=== PATIENT | female | born 1950 | race Caucasian/White ===

== ENCOUNTER 2020-05-15 16:41 | Outpatient (CLI) | payer MEDICARE, SELFPAY ==
--- NOTE | ~2020-05-15 | MM_ITS ---
EXAMINATION: MM screening dinesh BI w julio cesar HISTORY: Screening TECHNIQUE: Craniocaudal and mediolateral oblique 3-D tomosynthesis images were obtained and synthetic 2-D images were generated. CAD analysis was submitted and interpreted. COMPARISON: No prior mammogram is available for comparison at this institution. BREAST PARENCHYMAL COMPOSITION: There are scattered areas of fibroglandular density. FINDINGS: There is a mass in the upper outer quadrant of the left breast measuring 1.7 cm which is ra diolucent and contains punctate calcifications. No mammographic evidence for malignancy in the right breast. IMPRESSION: 1. Lobulated 1.7 cm left breast mass. 2. Additional mammographic views and possible breast ultrasound are recommended. BI-RADS Category 0: Incomplete: Needs additional imaging evaluation. Reviewed, dictated and finalized at location A. ER MINER IMPRESSION: 1. Lobulated 1.7 cm left breast mass. 2. Additional mammographic views and possible breast ultrasound are recommended . BI-RADS Category 0: Incomplete: Needs additional imaging evaluation.
== END 2020-05-15 16:42 | disposition home or self-care (01) ==
LOC: ANHIMG 16:44
PROVIDERS: PCP Family Medicine; Visit Provider Family Medicine
DX: Z12.31 Encounter for screening mammogram for malignant neoplasm of breast (principal); R92.8 Other abnormal and inconclusive findings on diagnostic imaging of breast
CPT/HCPCS: 77063; 77067

== ENCOUNTER 2020-06-11 13:16 | Outpatient (CLI) | payer MEDICARE, SELFPAY ==
--- NOTE | ~2020-06-11 | MMUS_ITS ---
EXAMINATION: MM diagnostic mammo unilat LT, US breast LT limited HISTORY: 1.7 cm upper outer quadrant left breast mass TECHNIQUE: Additional 3-D tomosynthesis images of the left breast were performed and synthetic 2-D im ages were generated. CAD analysis was submitted and interpreted. High resolution upper outer quadrant left breast ultrasound was performed. COMPARISON: 05/15/19992010 bilateral digital screening mammogram FINDINGS: MAMMOGRAPHIC FINDINGS: There is an approximately 1.7 cm circumscribed low-density opacity in the upper outer quadrant of the left breast anteriorly. There are some calcifications within the lesion and fatty density, suggestin g benign hamartoma. No other suspicious mass or any architectural distortion, malignant calcification, skin thickening or retraction is evident. ULTRASOUND: There is a mixed solid and fatty circumscribed parallel hypoechoic 1.6 x 0.6 x 1.6 cm mass with some edge shadowing. The presence of extensive fatty density within the lesion and the presence of calcifi cations on the mammogram most consistent with hamartoma. The circumscribed margins are consistent wit h benign process. IMPRESSION: 1. Benign hamartoma, upper outer left breast 2. Routine annual mammographic screening is recommended. BI-RADS Category 2: Benign finding(s). Reviewed, dictated and finalized at location A. D ASSESSOR IMPRESSION: 1. Benign hamartoma, upper outer left breast 2. Routine annual mammographic screening is recommended. BI-RADS Category 2: Benign finding(s).
== END 2020-06-11 13:17 | disposition home or self-care (01) ==
PROVIDERS: PCP Family Medicine; Visit Provider Family Medicine
DX: R92.8 Other abnormal and inconclusive findings on diagnostic imaging of breast (principal)
CPT/HCPCS: 76642; 77065

== ENCOUNTER 2021-03-17 13:53 | Emergency (ER) | payer MEDICARE, SELFPAY ==
--- NOTE | ~2021-03-17 | XR_ITS ---
EXAMINATION: XR chest 2V DATE: 03/17/2021 14:20 INDICATION: Back pain TECHNIQUE: PA and lateral views of the chest are obtained. COMPARISON: 06/06/2013 FINDINGS: The lungs are free of acute opacities. There is no pleural effusion or pneumothorax. The ca rdiomediastinal silhouette is normal. There is mild thoracic spondylosis. IMPRESSION: 1. No acute cardiopulmonary abnormality. Reviewed, dictated and finalized at location A. DEMONSTRATOR
[2021-03-17 14:04] VITALS: BP 161/81; PULSE 101; RESP 16; TEMP 36.9; O2SAT 98
--- NOTE | 2021-03-17 14:27 | ED.BACK ---
HPI - Back Pain/Injury General Chief Complaint: Back Pain/Injury Stated Complaint: back pain Source: patient and RN notes reviewed Limitations: no limitations History of Present Illness HPI Narrative: The vaccinated patient, a smoker/ rare drinker, presents with back pain. Patient states she has at least a weeklong history of bilateral, point tender mid back pain that is slightly worse with twisting or movement, better at rest, that she attributed to onset with increased lifting/heavy housework. Symptoms are mild, unrelieved with Motrin; no fever, frequency/dysuria, radiating pain, numbness/weakness; no loss of taste/smell, shortness of breath. No trauma, abdominal pain ; in 2018 abdominal ultrasound was noncontributory without AAA; years ago [2013], lumbar film showed lumbar spondylolysis. Vital signs remarkable for blood pressure in 160s systolic, patient requests refill of prior beta-chris she is out of. Related Data Allergies Allergy/AdvReac Type Severity Reaction Status Date / Time No Known Allergies Allergy Verified 05/07/20 15:30 Review of Systems Review of Systems: General/Constitutional: No weight loss,fever Eyes: N0: Redness,discharge Ears/Nose/Throat: No: Epistaxis,ear discharge Respiratory: Denies: Hemoptysis Gastrointestinal: No Vomiting, Bleeding-rectal Skin: No Lumps, eruption Neurologic: No Focal Weakness,Sz Hematologic: Denies: Petechiae/Purpura Psychiatric: No: Suicida ideationl All Other Systems: Reviewed and Negative [facility] Past Medical History Medical History (Updated 03/17/21 @ 15:22 by Anderson Watkins MD) Arthritis Depression Dyslipidemia Fibromyalgia Hypertension Insomnia Intractable migraine without status migrainosus Unspecified osteoarthritis, unspecified site Surgical History Surgical History H/O total hysterectomy with bilateral salpingo-oophorectomy (BSO) Family History Family History Other Depression Social History Social History Smoking packs per day: 0.5 Smoking cigarettes per day: 10.0 Years smoked: 49 Smoking pack-years: 24.50 Smoking status: Current every day smoker Tobacco type: cigarettes Second hand tobacco smoke exposure: No Additional smoking assessment comments: consumes 1/2 pack of cigarettes daily Alcohol intake: never Substance use: never Substance use type: does not use Gender identity (if verbalized by the patient): Female Comments At time of signature, agree with nursing past medical, surgical, social and family history. There is no relevant family history pertinent to the presenting complaint Exam Narrative: General Appearance: Well appearing, Well nourished EYE: PERRLA, Conjunctiva clear Ears: External ear normal Nose: Normal nose Mouth/Throat: Normal appearing, Normal lips Neck: Supple Respiratory: Airway patent Abdomen: Soft Musculoskeletal: Normal strength (no footdrop, 5/5 : EH L-FHL, gastroc-AT, no saddle weakness) Spine/Back: Upper lumbar paraspinal muscle tender (with mild decreased range of motion) Skin: Normal color Neurological: A&O x3, CN II-XII intact, Normal reflexes (symmetric, 2+ KJ, trace AJ) Psychiatric: Normal mood Course Vital Signs Vital signs: Vital Signs Temperature 98.4 F 03/17/21 14:04 Pulse Rate 101 H 03/17/21 14:04 Respiratory Rate 16 03/17/21 14:04 Blood Pressure 161/81 H 03/17/21 14:04 Pulse Oximetry 98 03/17/21 14:04 Temperature 98.4 F 03/17/21 14:04 Pulse Rate 101 H 03/17/21 14:04 Respiratory Rate 16 03/17/21 14:04 Blood Pressure 161/81 H 03/17/21 14:04 Pulse Oximetry 98 03/17/21 14:04 Discharge Plan Discharge Clinical Impression: Lumbar spondylolysis Back pain Qualifiers: Back pain location: back pain in unspecified location Chronicity: acute Back pain laterality: b
[2021-03-18 18:23] LABS: SARS-CoV-2 RNA PCR Negative
== END 2021-03-17 14:43 | disposition home or self-care (01) ==
PROVIDERS: Emergency Provider Emergency Medicine; PCP Family Medicine
DX: M54.50 Low back pain, unspecified (principal); Z20.822 Contact with and (suspected) exposure to COVID-19; M19.90 Unspecified osteoarthritis, unspecified site; E78.5 Hyperlipidemia, unspecified; M79.7 Fibromyalgia; I10 Essential (primary) hypertension
CPT/HCPCS: 71046; 99213; C9803; G0463; U0003; U0005

== ENCOUNTER 2023-05-28 14:36 | Emergency (ER) | payer MEDICARE, SELFPAY ==
--- NOTE | ~2023-05-28 | CT_ITS ---
EXAMINATION: CT lumbar spine wo con DATE: 05/28/2023 16:01 INDICATION: Low back pain. Fall. TECHNIQUE: Computed tomography (CT) of the lumbar spine was performed without intravenous contrast. A utomated exposure control and iterative reconstruction technique were employed. The dose-length produ ct was 1272.89 mGy-cm. COMPARISON: None FINDINGS: Bone alignment is normal. Vertebral body heights are normal. There is mildly decreased disc height at L2-L3 and L3-L4 and severely decreased disc height at L4-L5 and L5-S1. The following disc levels are specifically discussed: L1-L2: The disc does not extend beyond the endplate margin. There is mild bilateral facet joint osteo arthritis. There is no neural foraminal stenosis. There is no central canal stenosis. L2-L3: The disc is bulging. There is moderate bilateral facet joint osteoarthritis. There is mild kurt ateral neural foraminal stenosis. There is mild central canal stenosis. L3-L4: The disc is bulging. There is severe bilateral facet joint osteoarthritis. There is moderate b ilateral neural foraminal stenosis. There is mild central canal stenosis. L4-L5: The disc is bulging. There is severe bilateral facet joint osteoarthritis. There is moderate b ilateral neural foraminal stenosis. There is mild central canal stenosis. L5-S1: The disc is bulging. There is severe bilateral facet joint osteoarthritis. There is moderate b ilateral neural foraminal stenosis. There is mild central canal stenosis. IMPRESSION: 1. No fracture. 2. Severe lumbar spondylosis. Reviewed, dictated and finalized at location E. MER AND REINFORCER
--- NOTE | ~2023-05-28 | CT_ITS ---
EXAMINATION: CT brain wo con DATE: 05/28/2023 15:58 INDICATION: Head injury. TECHNIQUE: Computed tomography (CT) of the head was performed without intravenous contrast. The mA wa s adjusted according to patient size. Iterative reconstruction technique was employed. The dose-lengt h product was 681.00 mGy-cm. COMPARISON: Head CT 10/13/2006 FINDINGS: There is a hemorrhagic contusion in anteroinferior right middle lobe with adjacent small vo lume of acute subarachnoid hemorrhage. There is no acute ischemic infarct or abnormal mass lesion. Th e mastoid air cells are normal. The paranasal sinuses are clear. There are likely changes of ocular l ens replacement surgeries. IMPRESSION: 1. Acute hemorrhagic contusion involving anteroinferior right frontal lobe with adjacent small volume of acute subarachnoid hemorrhage. I called this result to Emmie Soto. Reviewed, dictated and finalized at location E. ON PICTURES CARTOONIST IMPRESSION: 1. Acute hemorrhagic contusion involving anteroinferior right frontal lobe with adjacent small volume of acute subarachnoid hemorrhage. I called this result frank Soto.
--- NOTE | ~2023-05-28 | CT_ITS ---
EXAMINATION: CT cervical spine wo con DATE: 05/28/2023 16:01 INDICATION: Head injury. TECHNIQUE: Computed tomography (CT) of the cervical spine was performed without intravenous contrast. Automated exposure control and iterative reconstruction technique were employed. The dose-length pro duct was 449.44 mGy-cm. COMPARISON: CT cervical spine 10/13/2006 FINDINGS: There is 9 degrees levocurvature of cervical spine. There is kyphosis of cervical spine. Ve rtebral body heights are normal. There is severely decreased disc height from C4-C5 through C6-C7. Th e following disc levels are specifically discussed: C2-C3: There is mild right and severe left uncovertebral joint osteoarthritis. There is severe bilate ral facet joint osteoarthritis. There is mild right and moderate left neural foraminal stenosis. Ther e is no central canal stenosis. C3-C4: There is severe right and mild left uncovertebral joint osteoarthritis. There is severe bilate ral facet joint osteoarthritis. There is moderate right and mild left neural foraminal stenosis. Ther e is mild central canal stenosis. C4-C5: There is severe bilateral uncovertebral joint osteoarthritis. There is severe right and mild l eft facet joint osteoarthritis. There is moderate right and mild left neural foraminal stenosis. Ther e is mild central canal stenosis. C5-C6: There is severe bilateral uncovertebral joint osteoarthritis. There is severe bilateral facet joint osteoarthritis. There is mild bilateral neural foraminal stenosis. There is mild central canal stenosis. C6-C7: There is severe bilateral uncovertebral joint osteoarthritis. There is severe bilateral facet joint osteoarthritis. There is mild bilateral neural foraminal stenosis. There is mild central canal stenosis. C7-T1: There is no uncovertebral joint osteoarthritis. There is severe bilateral facet joint osteoart hritis. There is mild bilateral neural foraminal stenosis. There is no central canal stenosis. IMPRESSION: 1. No fracture. 2. Severe cervical spondylosis. Reviewed, dictated and finalized at location E. APPLICATIONS DEVELOPER
[2023-05-28 14:37] VITALS: BP 158/88; PULSE 86; RESP 18; TEMP 36.4; O2SAT 99
--- NOTE | 2023-05-28 15:59 | ED.FALL ---
HPI - Fall General Chief Complaint: Fall <Emmie Soto PA-C - Last Filed: 05/28/23 17:05> Stated Complaint: fall <ARUNA Bhat Last Filed: 05/28/23 17:05> Time Seen by Provider: 05/28/23 14:54 <Emmie Soto PA-C - Last Filed: 05/28/23 17:05> Source: patient <Emmie Soto PA-C - Last Filed: 05/28/23 17:05> Mode of arrival: ambulatory <ARUNA Bhat Last Filed: 05/28/23 17:05> Limitations: no limitations <ARUNA Bhat Last Filed: 05/28/23 17:05> History of Present Illness HPI Narrative: This is a 72 year old female that presents to the ER for a fall 3 days ago with head injury. Reports she slipped and fell backwards and hit her head. Reports she believes she lost consciousness. Since she has been having headaches and nausea. Also reports low back pain. Denies vision changes, vomiting, numbness or weakness. <Emmie Soto PA-C - Last Filed: 05/28/23 17:05> Related Data Home Medications: Home Medications Medication Instructions Recorded Confirmed ascorbic acid (vitamin C) 1,000 mg 1 g PO DAILY 07/24/21 09/01/22 tablet cholecalciferol (vitamin D3) 25 25 mcg PO DAILY 07/24/21 09/01/22 mcg (1,000 unit) capsule naproxen sodium 220 mg tablet 220 mg PO BID PRN 10/02/21 09/01/22 <Emmie Soto PA-C - Last Filed: 05/28/23 17:05> Allergies/Adverse Reactions: Allergies Allergy/AdvReac Type Severity Reaction Status Date / Time No Known Allergies Allergy Verified 05/28/23 14:41 <ARUNA Bhat Last Filed: 05/28/23 17:05> Review of Systems Review of Systems: CONSTITUTIONAL: Denies fever EYES: Denies visual changes GASTROINTESTINAL: Denies vomiting MUSCULOSKELETAL: Reports back pain, joint pain, and myalgia. NEUROLOGIC: Denies numbness, or weakness. <Emmie Soto PA-C - Last Filed: 05/28/23 17:05> All systems reviewed & are unremarkable except as noted in HPI and below <Emmie Soto PA-C - Last Filed: 05/28/23 17:05> PMFSH Past Medical History Medical History: Medical History Anxiety Arthritis Dyslipidemia Fibromyalgia Hypertension Insomnia Intractable migraine without status migrainosus Unspecified osteoarthritis, unspecified site <Emmie Soto PA-C - Last Filed: 05/28/23 17:05> Surgical History Surgical History: Surgical History S/P partial hysterectomy <Emmie Soto PA-C - Last Filed: 05/28/23 17:05> Family History Family History: Family History Other Depression Ovarian cancer <Emmie Soto PA-C - Last Filed: 05/28/23 17:05> Social History Social History: Social History Social History: Caffeine-coffee daily Smoking packs per day: 0.5 Smoking cigarettes per day: 10.0 Years smoked: 30 Smoking pack-years: 15.00 Smoking status: Light tobacco smoker Tobacco type: cigarettes Second hand tobacco smoke exposure: No Additional smoking assessment comments: consumes 1/2 pack of cigarettes daily Alcohol intake: never Substance use: never Substance use type: does not use Lack of Transportation: No Lack of Food: Never True Current Housing: I Have Housing Concerned About Future Housing: No Difficulty Paying Gas/Electric Bills: No Difficulty Paying for Meds: No Currently Unemployed: No Education: High School Diploma/GED Difficulty w/ Childcare or Family Care: No Gender identity (if verbalized by the patient): Female <ARUNA Bhat Last Filed: 05/28/23 17:05> Exam Narrative: GENERAL: Well-appearing, well-nourished, and in no acute distress. HEAD: Normocephalic, atraumatic. EYES: PERRLA and EOMI. ENT: Nares clear, no rhinorrhea or epistaxis. Mucous membranes moist. Oropharynx w
[2023-05-28 16:27] VITALS: BP 147/83; PULSE 97; RESP 16; O2SAT 98
[2023-05-28 16:42] VITALS: BP 138/72; PULSE 72; RESP 18; O2SAT 93
--- NOTE | 2023-05-28 16:50 | PC.NURSE ---
EMS here to transport pt.
== END 2023-05-28 17:05 | disposition short-term general hospital (02) ==
PROVIDERS: Emergency Provider Physician Assistant; PCP Family Medicine
DX: S06.6X9A Traumatic subarachnoid hemorrhage with loss of consciousness of unspecified duration, initial encounter (principal); I10 Essential (primary) hypertension; E78.5 Hyperlipidemia, unspecified; M79.7 Fibromyalgia; M19.90 Unspecified osteoarthritis, unspecified site; F17.210 Nicotine dependence, cigarettes, uncomplicated; Z90.711 Acquired absence of uterus with remaining cervical stump; M47.812 Spondylosis without myelopathy or radiculopathy, cervical region; M47.816 Spondylosis without myelopathy or radiculopathy, lumbar region; W01.0XXA Fall on same level from slipping, tripping and stumbling without subsequent striking against object, initial encounter
CPT/HCPCS: 70450; 72125; 72131; 99291

== ENCOUNTER 2023-06-18 16:36 | Outpatient (CLI) | payer MEDICARE, SELFPAY ==
--- NOTE | ~2023-06-18 | CT_ITS ---
EXAMINATION: CT brain wo con DATE: 06/18/2023 17:27 INDICATION: Nontraumatic subarachnoid hemorrhage. Posterior head pain. TECHNIQUE: Computed tomography (CT) of the head was performed without intravenous contrast. Sagittal and coronal reconstructions were performed. The mA was adjusted according to patient size. Iterative reconstruction technique was employed. The dose-length product was 681.00 mGy-cm. COMPARISON: head CT dated 05/28/2023 FINDINGS: The small intraparenchymal hemorrhage at the anterior inferior right frontal lobe has resolved. No ac felipe intracranial hemorrhage, acute infarction or abnormal extra axial fluid collection. There is mild scattered white matter hypoattenuation consistent with chronic small vessel ischemic disease. Ventr icles are normal and symmetric. No mass/mass effect. Changes of bilateral intraocular lens replacemen t. The orbits, paranasal sinuses and mastoid air cells are normal. IMPRESSION: 1. Resolution of prior small right frontal intraparenchymal hemorrhage. No acute intracranial process . 2. Mild scattered white matter hypoattenuation consistent with chronic small vessel ischemic disease. Reviewed, dictated and finalized at location A. RVISOR AIR CONDITIONING INSTALLER IMPRESSION: 1. Resolution of prior small right frontal intraparenchymal hemorrhage. No acut e intracranial process. 2. Mild scattered white matter hypoattenuation consistent with chronic small ve ssel ischemic disease.
== END 2023-06-18 16:37 | disposition home or self-care (01) ==
LOC: ANHIMG 16:36
PROVIDERS: PCP Family Medicine; Visit Provider Family Medicine
DX: I60.9 Nontraumatic subarachnoid hemorrhage, unspecified (principal); R90.82 White matter disease, unspecified
CPT/HCPCS: 70450

== ENCOUNTER 2024-08-26 12:55 | Outpatient (CLI) | payer MEDICARE, SELFPAY ==
--- NOTE | ~2024-08-26 | XR_ITS ---
3 VIEWS LUMBAR SPINE Ordering provider: Donita Anderson APRN History: . M54.50 - Low back pain, unspecified . Comparison: None. FINDINGS: VERTEBRAL BODIES:Fracture of the superior endplate of L2. No visible subluxation. Degenerative marsh es of the spine. DISK SPACES: Narrowing of the disc L4-L5 and L5-S1. Multilevel facet joint disease. SOFT TISSUES: Normal. IMPRESSION: Compression fracture of the superior endplate of L2. Multilevel degenerative disc disease. Reviewed, dictated and finalized at location A.
--- OUTSIDE RECORDS SUMMARY | 2024-08-26 13:00 | XMS_ITS | Continuity of Care Document ---
Author Organization [facility] Address [address] [place] [address] Phone Care Team Providers Care Employment Interviewer Name Role Phone Umaña OD, Otf Unavailable Unavailable Procedures Procedure Date Eye Exam & Treatment Refraction Advance Directives Directive Yes / No Effective Date File Name No Information Encounters Encounter Description Practice Location Reason(s) For Visit Diagnoses Date Provider Providers Copied on Encounter [facility], [address] [place], [place], [id number], [place] tel:[phone] [facility] [place] No Information 2-200 7 Umaña OD Otf. [address] [facility] [place] , [address], [place], [address], [place]. tel:[phone] Family History Family Member Type Diagnosis Age At Onset No Information Payers Payer name Insurance type Covered libertarian ID Lilly sepulveda(s) [facility] CI [id number] Social History Type Description Quantity Date Captured Comments Sex Female Smoking Status No Information Chief Complaint And Reason For Visit No Information Reason For Referral Reason For Referral No Information History Of Present Illness Encounter Date Complaint History Of Prese nt Illness No Information Functional Status Date Functional Assessmen t No Information Instructions Date Instruction Additional Infor mation No Information Assessments Type Assessment Date No Information Patient Care Teams Name Effective Dates (start - stop) Status Members No Information
== END 2024-08-26 12:56 | disposition home or self-care (01) ==
LOC: ANHIMG 12:58
PROVIDERS: PCP Family Medicine; Visit Provider Nurse Practitioner Adult Health
DX: S32.020A Wedge compression fracture of second lumbar vertebra, initial encounter for closed fracture (principal); M51.369 Other intervertebral disc degeneration, lumbar region without mention of lumbar back pain or lower extremity pain; M51.379 Other intervertebral disc degeneration, lumbosacral region without mention of lumbar back pain or lower extremity pain; X58.XXXA Exposure to other specified factors, initial encounter
CPT/HCPCS: 72100

== ENCOUNTER 2024-09-29 15:50 | Outpatient (CLI) | payer MEDICARE, SELFPAY ==
--- NOTE | ~2024-09-29 | MR_ITS ---
MRI of the lumbar spine Clinical History: Back pain Technique: Axial T2-weighted images, and sagittal T1-weighted, T2-weighted, and T2 fat-sat images wer e acquired. Findings: There is probable acute Schmorl's node versus acute compression fracture of the superior en dplate of L2. There are reactive Modic type I signal changes about the L4-L5 disc space due to underl vlad degenerative disc disease. At L1-L2, there is severe degenerative disc narrowing with minimal disc bulge and minimal facet arthr opathy. No central canal stenosis or neural foraminal narrowing. At L2-L3, there is mild degenerative disc narrowing. There is minimal disc bulge and mild facet arthr opathy. No central canal stenosis or neural foraminal narrowing. At L3-L4, there is diffuse disc bulge with advanced facet arthropathy. There is moderate to severe sp inal canal stenosis/thecal sac compression. There is moderate bilateral neural foraminal narrowing. At L4-L5, there is severe degenerative disc narrowing. There is diffuse disc bulge with advanced face t arthropathy. There is mild central canal stenosis. There is severe bilateral neural foraminal narro wing, right worse than left. At L5-S1, there is severe degenerative disc narrowing. There is diffuse disc bulge with annular fissu re. There is moderate to advanced facet arthropathy. No central canal stenosis. There is severe bilat eral neural foraminal compromise. Paravertebral soft tissues are unremarkable. Impression: Acute Schmorl's node versus compression fracture at the superior endplate region of L2. Advanced degenerative spondylosis, as above. There is multilevel severe bilateral neural foraminal na rrowing. Moderate to severe spinal canal stenosis at L3-L4. Reviewed, dictated and finalized at [facility]. Impression: Acute Schmorl's node versus compression fracture at the superior endplate regio n of L2. Advanced degenerative spondylosis, as above. There is multilevel severe bilater al neural foraminal narrowing. Moderate to severe spinal canal stenosis at L3-L 4.
== END 2024-09-29 15:51 | disposition home or self-care (01) ==
LOC: MICIMG 15:51
PROVIDERS: PCP Family Medicine; Visit Provider Nurse Practitioner Adult Health
DX: M51.46 Schmorl's nodes, lumbar region (principal); S32.020A Wedge compression fracture of second lumbar vertebra, initial encounter for closed fracture; X58.XXXA Exposure to other specified factors, initial encounter; M47.816 Spondylosis without myelopathy or radiculopathy, lumbar region; M47.817 Spondylosis without myelopathy or radiculopathy, lumbosacral region; M48.061 Spinal stenosis, lumbar region without neurogenic claudication
CPT/HCPCS: 72148

== ENCOUNTER 2024-10-28 10:30 | Emergency (ER) | payer MEDICARE, SELFPAY ==
--- NOTE | ~2024-10-28 | XR_ITS ---
EXAM/PROCEDURE: XR chest 2V - 10/28/2024 11:54 CDT HISTORY: 74 years old Female with dizziness, NAUSEOUS XYESTERDAY TECHNIQUE: Two view(s) of the chest. COMPARISON: None available. FINDINGS: LUNGS/ PLEURA: No focal consolidation. No appreciable pneumothorax or large pleural effusion. HEART/ MEDIASTINUM: Heart appears normal in size. BONES: Degenerative changes. OTHER: Visualized upper abdomen is unremarkable. IMPRESSION: No acute process. Reviewed, dictated and finalized at location A. IMPRESSION: No acute process.
--- NOTE | ~2024-10-28 | CT_ITS ---
EXAMINATION: CTA BRAIN/CAROTID DATE: 10/28/2024 12:26 INDICATION: Dizziness TECHNIQUE: Computed tomographic angiography (CTA) of the head and neck was performed with 100 mL Omni paque-350 intravenous contrast. Multiplanar reconstructions and maximum intensity projection 3D-recon structions of the carotid arteries and of the intracranial arteries were created by the technologist on a separate workstation. Precontrast CT of the head was also obtained. Automated exposure control and iterative reconstruction technique were employed.The dose-length product was 1642.91 mGy-cm. COMPARISON: None. FINDINGS: Carotid arteries: Small amount of atherosclerotic plaque without hemodynamically significant stenosis or dissection sean ng the normal caliber visualized portion of the aortic arch and the great vessels arising from the ar ch. Bilateral intracranial vertebral arteries are codominant with no evident plaque or stenosis. Ther e is atherosclerotic plaque with 70% stenosis of the right carotid bulb relative to normal distal art amado lumen diameter (NASCET criteria). There is atherosclerotic plaque with 60% stenosis of the left c arotid bulb relative to normal distal artery lumen diameter. Cervical soft tissues are unremarkable. Apices of lungs are clear. Moderate cervical spondylosis with mild kyphosis. Head: No acute intracranial hemorrhage, acute infarction or abnormal extra axial fluid collection. Ventricl es are normal and symmetric. No mass/mass effect. No abnormally enhancing brain lesions on the postco ntrast imaging. Changes of bilateral intraocular lens replacement. The orbits, paranasal sinuses and mastoid air cells are normal. Intracranial arteries Vertebral arteries are codominant. Small amount of hemodynamically significant atherosclerotic plaque at the bilateral carotid siphons. There is no hemodynamically significant stenosis in the vertebral, basilar and internal carotid arteries. Both A1 and the right P1 segments are patent. The right A1 se gment is diminutive with majority of flow to the right anterior cerebral artery supplied from the lef t A1 segment and a patent anterior communicating artery which significantly larger in caliber than th e diminutive right A1 segment. The left posterior cerebral artery supplied by the left internal carot id artery via a patent left posterior communicating artery. There is also a smaller caliber patent ri ght posterior commuting artery. There are no aneurysms identified. Cerebral arterial arborization ap pears symmetric. IMPRESSION: 1. 70% stenosis of the right carotid bulb relative to normal distal artery lumen diameter (NASCET cri teria). 2. 60% stenosis of the left carotid bulb relative to normal distal artery lumen diameter. 3. No acute intracranial process. 4. No hemodynamically significant stenosis, aneurysm or thrombosis in the intracranial arteries with normal anatomic variation to the anatomy of the [place] as detailed above. Reviewed, dictated and finalized at location A. IMPRESSION: 1. 70% stenosis of the right carotid bulb relative to normal distal artery lume n diameter (NASCET criteria). 2. 60% stenosis of the left carotid bulb relative to normal distal artery lumen diameter. 3. No acute intracranial process. 4. No hemodynamically significant stenosis, aneurysm or thrombosis in the intra cranial arteries with normal anatomic variation to the anatomy of the [place] as detailed above.
[2024-10-28 10:55] VITALS: BP 146/74; PULSE 79; RESP 16; TEMP 36.6; O2SAT 100
--- NOTE | 2024-10-28 11:05 | ECG_ITS ---
Test Date: 2024-10-28 11:15:14 Measurements Intervals [place] Rate: 73 P: 44 WV: 143 QRS: 21 QRSD: 89 T: 42 QT: 397 QTc: 438 Interpretive Statements SINUS RHYTHM WITH SINUS ARRHYTHMIA NORMAL ECG No previous ECG available for comparison Electronically Signed On 10-28-2024 11:28:53 CDT by Carlos Márquez D.O.
[2024-10-28 11:29] LABS: Basophils Absolute Auto 0.1 K/mm3 (0.0-0.1); Basophils Percent Auto 0.9 % (0.2-1.2); Eosinophils Absolute Auto 0.1 K/mm3 (0-0.3); Eosinophils Percent Auto 1.3 % (0-4.4); Hematocrit 43.3 % (37.0-47.0); Hemoglobin 14.2 g/dL (12.0-15.0); Immature Granulocyte Absolute 0.02 K/mm3 (0.00-0.031); Immature Granulocyte Percent A 0.3 % (0-0.5); Lymphocytes Percent Auto 24.4 % (18.3-44.2); Mean Corpuscular HGB Conc 32.8 g/dl (32-36); Mean Corpuscular Hemoglobin 31.6 pg (26-34); Mean Corpuscular Volume 96.2 fl (80-100); Mean Platelet Volume 10.4 fl (7.4-10.4); Monocytes Absolute Auto 0.7 K/mm3 (0.1-0.6); Monocytes Percent Auto 9.9 % (2.6-8.5); Neutrophils Absolute Auto 4.4 K/mm3 (1.3-6.7); Neutrophils Percent Auto 63.2 % (45.5-73.1); Platelet Count Result 247 k/mm3 (150-375); Red Cell Distribution Width 12.7 % (11.5-14.5)
[2024-10-28 11:40] VITALS: BP 157/81; BP 157/85; BP 166/76; PULSE 74; PULSE 79; PULSE 80
[2024-10-28 11:40] LABS: INR 0.9; Prothrombin Time 12.5 Seconds (11.1-14.7)
[2024-10-28 11:41] LABS: Alanine Aminotransferase 25 U/L (6-35); Albumin Level 4.2 g/dL (3.5-5.1); Alkaline Phosphatase 97 U/L (38-126); Anion Gap 8 mmol/L (4-12); Aspartate Amino Transferase 38 U/L (14-36); Bilirubin,Total 0.8 mg/dL (0.2-1.3); Blood Urea Nitrogen 12 mg/dL (7-17); Calcium 9.5 mg/dL (8.4-10.2); Carbon Dioxide 24 mmol/L (22-30); Chloride 107 mmol/L (98-107); Estimated CRCL calculation 61 ml/min; Estimated Glomerular Filt Rate > 60; Glucose 112 mg/dL (65-110); Partial Thromboplastin Time 23.7 Seconds (22.3-36.8); Potassium 3.6 mmol/L (3.4-5.0); Sodium 139 mmol/L (137-145); Total Protein 7.5 g/dL (6.3-8.2)
[2024-10-28] MEDS: MECLIZINE HCL 25 MG TABLET PO (11:51)
[2024-10-28] MEDS: SODIUM CHLORIDE 0.9% IV 1,000 ML 999 ML (11:51)
[2024-10-28 11:53] LABS: Troponin I < 0.012 ng/mL (0.000-0.034)
[2024-10-28 12:00] VITALS: BP 156/80; PULSE 72; RESP 16; TEMP 36.6; O2SAT 100
[2024-10-28] MEDS: SCOPOLAMINE 1 MG PATCH 1 PATCH TRANSDERM (12:08)
[2024-10-28 13:00] VITALS: BP 154/80; PULSE 74; RESP 16; TEMP 36.6; O2SAT 100
--- NOTE | 2024-10-28 13:47 | ED_ITS ---
HPI - General Adult General Chief complaint: Dizziness Stated complaint: dizzy x 24 hr, n/v Time Seen by Provider: 10/28/24 11:13 History of Present Illness HPI narrative: This is a 74-year-old female presenting ED with chief complaint of vertigo. Patient woke up yesterday morning and when she rolled to the side she developed is intense vertigo sensation that is associated with nausea and vomiting. The symptoms completely resolve in between episodes. She does not have any double vision, dysarthria dysphagia loss of coordination. No numbness tingling weakness to any extremity. Related Data Home Medications ?Medication ?Instructions ?Recorded ?Confirmed ?Last Taken ?Type ascorbic acid (vitamin C) 1,000 mg 1 g PO DAILY 07/24/21 08/03/24 Unknown History tablet cholecalciferol (vitamin D3) 25 25 mcg PO DAILY 07/24/21 08/03/24 Unknown History mcg (1,000 unit) capsule Allergies Allergy/AdvReac Type Severity Reaction Status Date / Time No Known Allergies Allergy Verified 10/28/24 10:34 [facility] Past Medical History Medical History Compression fracture Injury to back Lumbar spine pain Anxiety Hypertension Arthritis Unspecified osteoarthritis, unspecified site Insomnia Dyslipidemia Intractable migraine without status migrainosus Fibromyalgia Surgical History Surgical History S/P partial hysterectomy Family History Family History Father Heart disease Son Depression Other Ovarian cancer Social History Social History Social History: Caffeine-coffee daily Smoking packs per day: 0.5 Smoking cigarettes per day: 10.0 Years smoked: 30 Smoking pack-years: 15.00 Smoking status: Former smoker Tobacco type: cigarettes Second hand tobacco smoke exposure: No Smoking end date: 05/04/23 Alcohol intake: never Substance use: never Substance use type: does not use Do You Feel Safe in your Home?: Yes Lack of Transportation: No Lack of Food: Never True Current Housing: I Have Housing Concerned About Future Housing: No Difficulty Paying Gas/Electric Bills: No Difficulty Paying for Meds: No Currently Unemployed: No Education: High School Diploma/GED Difficulty w/ Childcare or Family Care: No Living arrangements: alone Occupation/Education: retired Gender identity (if verbalized by the patient): Female Agree to blood products: Yes Exam 2 Narrative: APPEARANCE: No apparent distress. Head: atraumatic. EYES: EOMI, NOSE: Atraumatic NECK: Trachea midline RESPIRATORY: No increased rate of breathing clear to auscultation CARDIOVASCULAR: RRR, no peripheral edema ABDOMINAL: Non-distended soft nontender MUSCULOSKELETAl: No obvious deformities NEURO: Alert. Cranial nerves 2-12 grossly intact. Sensation light touch, motor function cerebellar function intact for 4 extremities. Gait exam was normal. Test of skew negative, no nystagmus at rest, indeterminate head impulse SKIN:: Warm, dry. Normal color PSYCHIATRIC: Normal affect Course Vital Signs Vital signs: Vital Signs Temperature 97.9 F 10/28/24 10:55 Pulse Rate 79 10/28/24 10:55 Respiratory Rate 16 10/28/24 10:55 Blood Pressure 146/74 H 10/28/24 10:55 Pulse Oximetry 100 10/28/24 10:55 Oxygen Delivery Room Air 10/28/24 10:55 Temperature 97.8 F 10/28/24 12:00 Pulse Rate 72 10/28/24 12:00 Respiratory Rate 16 10/28/24 12:00 Blood Pressure 156/80 H 10/28/24 12:00 Pulse Oximetry 100 10/28/24 12:00 Oxygen Delivery Room Air 10/28/24 10:55 Medical Decision Making [facility] Narrative Medical decision making narrative: -Course: 74-year-old female presenting with episodic triggerable vertigo. Worse with rolling to her left. No other neurologic deficits to indicate a posterior circulation stroke. CTA showed 60% and 70% stenosis of the carotids which is an incidental finding. No history of strokes or previous TIAs. Not contributory to her presentation today. Patient received meclizine and scopolamine with significant improvement in her symptoms. Vertigo has lessened drastically. Patient is now ambulating around the emergency depart with a steady gait. She is eating and drinking without difficulty. Patient will be discharged. She will be given neurology follow-up in regards to her asymptomatic carotid stenosis. Given return precautions. -DDX includes but is not limited to: BPPV, CVA, vestibular neuritis Vital Signs Vital Signs: Vital Signs Temperature 97.9 F 10/28/24 10:55 Pulse Rate 79 10/28/24 10:55 Respiratory Rate 16 10/28/24 10:55 Blood Pressure 146/74 H 10/28/24 10:55 Pulse Oximetry 100 10/28/24 10:55 Oxygen Delivery Room Air 10/28/24 10:55 Temperature 97.8 F 10/28/24 12:00 Pulse Rate 72 10/28/24 12:00 Respiratory Rate 16 10/28/24 12:00 Blood Pressure 156/80 H 10/28/24 12:00 Pulse Oximetry 100 10/28/24 12:00 Oxygen Delivery Room Air 10/28/24 10:55 Lab Data 10/28/24 11:19 10/28/24 11:19 Labs: Lab Results 10/28/24 10/28/24 Range/Units 11:19 13:22 WBC 7.0 (4.5-10.0) K/mm3 RBC 4.50 (4.2-5.4) M/mm3 Hgb 14.2 (12.0-15.0) g/dL Hct 43.3 (37.0-47.0) % MCV 96.2 (80-100) fl MCH 31.6 (26-34) pg MCHC 32.8 (32-36) g/dl RDW 12.7 (11.5-14.5) % Plt Count 247 (150-375) k/mm3 MPV 10.4 (7.4-10.4) fl Immature Gran % (Auto) 0.3 (0-0.5) % Neut % (Auto) 63.2 (45.5-73.1) % Lymph % (Auto) 24.4 (18.3-44.2) % [place] % (Auto) 9.9 H (2.6-8.5) % Eos % (Auto) 1.3 (0-4.4) % Baso % (Auto) 0.9 (0.2-1.2) % Lymph # (Auto) 1.70 (0.9-3.2) K/mm3 [place] # (Auto) 0.7 H (0.1-0.6) K/mm3 Eos # (Auto) 0.1 (0-0.3) K/mm3 Baso # (Auto) 0.1 (0.0-0.1) K/mm3 Abs Immat Gran (auto) 0.02 (0.00-0.031) K/mm3 Absolute Neuts (auto) 4.4 (1.3-6.7) K/mm3 Absolute Nucleated RBC 0.000 (0.0-0.012) K/mm3 Nucleated RBC % 0.0 (0.0-0.2) % PT 12.5 (11.1-14.7) Seconds INR 0.9 APTT 23.7 (22.3-36.8) Seconds Sodium 139 (137-145) mmol/L Potassium 3.6 (3.4-5.0) mmol/L Chloride 107 (98-107) mmol/L Carbon Dioxide 24 (22-30) mmol/L Anion Gap 8 (4-12) mmol/L BUN 12 (7-17) mg/dL Creatinine 0.70 (0.7-1.0) mg/dL Estim Creat Clear Calc 61 ml/min Estimated GFR > 60 (59 - ) Glucose 112 H (65-110) mg/dL Calcium 9.5 (8.4-10.2) mg/dL Total Bilirubin 0.8 (0.2-1.3) mg/dL AST 38 H (14-36) U/L ALT 25 (6-35) U/L Alkaline Phosphatase 97 (38-126) U/L Troponin I < 0.012 (0.000-0.034) ng/mL Total Protein 7.5 (6.3-8.2) g/dL Albumin 4.2 (3.5-5.1) g/dL Urine Color Pending Urine Appearance Pending Urine pH Pending Ur Specific Wolf Pending Urine Protein Pending Urine Glucose (UA) Pending Urine Ketones Pending Ur Blood (Man) Pending Urine Nitrate Pending Urine Bilirubin Pending Urine Urobilinogen Pending Leukocyte Esterase Rfl Pending Discharge Plan Discharge Clinical Impression: Benign paroxysmal positional vertigo Patient Disposition: Home Condition: Stable Instructions: Antibiotic Form, Benign Paroxysmal Positional Vertigo (ED) Additional Instructions: You were seen emergency department for vertigo. You likely have BPPV. Please use the meclizine and scopolamine as directed. You can perform the Isaiah maneuver at home to help improve your symptoms. The CTA of your neck showed stenosis of your carotid arteries. Please follow-up with the neurologist listed below for further evaluation. If you develop slurred speech, difficulty breathing or weakness in extremity please return to the emergency department immediately. Patient Language: Romanian Prescriptions: New meclizine 25 mg tablet 25 mg PO TID Qty: 30 0RF scopolamine base 1 mg over 3 days patch 3 day 1 patch transdermal Q3D PRN (Reason: vertigo) Qty: 4 0RF No Action ascorbic acid (vitamin C) 1,000 mg tablet 1 g PO DAILY cholecalciferol (vitamin D3) 25 mcg (1,000 unit) capsule 25 mcg PO DAILY prednisone 10 mg tablet 10 mg PO TID Qty: 15 0RF Rx Instructions: Take 3 times daily for 5 days. atorvastatin 10 mg tablet 10 mg PO QHS Qty: 100 1RF tizanidine 2 mg tablet 2 mg PO TID PRN (Reason: muscle spasticity) Qty: 20 0RF ketorolac 10 mg tablet 10 mg PO Q8H PRN (Reason: pain) Qty: 30 0RF Rx Instructions: maximum total duration of 5 days from all oral, intranasal, or parenteral formulations sertraline [Zoloft] 100 mg tablet 150 mg PO DAILY Qty: 135 0RF Follow-up/Referrals: Liyah Lemons MD [Physician] - 1 Week (Asymptomatic Carotid Stenosis. ) Kendrick Santacruz MD [Primary Care Provider] -
[2024-10-28 13:49] LABS: Add Urine Microscopic? YES; Appearance Urine Clear (Clear); Bacteria Urine 1+ /hpf; Bilirubin Urine Negative (Negative); Blood Urine Negative (Negative); Color Urine Yellow (Yellow); Glucose Urine UA Negative (Negative); Ketones Urine 1+ mg/dL (Negative); Leukocyte Esterase Ur 1+ LEU/UL (Negative); Nitrate Urine Negative (Negative); Non Pathogenic Casts 0-2; Protein Urine Negative (Negative); Specific Grav Ur > 1.045 (1.001-1.035); Squamous Epithelial Cell Urine Few /hpf (Few); WBC Urine 0-5 /hpf (0-3); pH Urine 7.5 (5.0-9.0)
[2024-10-28 14:06] VITALS: BP 158/74; PULSE 72; RESP 16; TEMP 36.6; O2SAT 100
[2024-10-28] MEDS: ACETAMINOPHEN 500 MG TABLET 1000 MG PO (14:16)
[2024-10-28 15:00] VITALS: BP 156/80; PULSE 74; RESP 16; TEMP 36.6; O2SAT 100
== END 2024-10-28 15:40 | disposition home or self-care (01) ==
PROVIDERS: Registered Nurse; Emergency Provider Emergency Medicine; PCP Family Medicine
DX: H81.10 Benign paroxysmal vertigo, unspecified ear (principal); I10 Essential (primary) hypertension; E78.5 Hyperlipidemia, unspecified; M19.90 Unspecified osteoarthritis, unspecified site; M79.7 Fibromyalgia; Z87.891 Personal history of nicotine dependence; Z90.711 Acquired absence of uterus with remaining cervical stump; I65.23 Occlusion and stenosis of bilateral carotid arteries
CPT/HCPCS: 36415; 70496; 70498; 71046; 80053; 81001; 84484; 85025; 85610; 85730; 87086; 93005; 99284; A9270; J7030; Q9967